=== PATIENT | female | born 1965 | race Caucasian/White ===

== ENCOUNTER 2021-11-17 08:48 | Day surgery (SDC) | payer MEDICARE, BC ==
[~2021-11-17] VITALS: Ht 154.9 cm; Wt 75.7 kg
[2021-11-17] MEDS ORDERED: AZULFIDINE500 M1 PO (09:26)
[2021-11-17] MEDS ORDERED: PROG100 PO (09:27)
[2021-11-17] MEDS ORDERED: LEFL20 PO (09:27)
[2021-11-17] MEDS ORDERED: Rituxan10 MG/ML IV (09:29)
[2021-11-17] MEDS ORDERED: OMEP20ER PO (09:59)
--- NOTE | 2021-11-17 10:59 | NUR ---
11/17/21 1059 Gina Bedolla 50C NACL FLUID DEFICIT FROM HYSTEROSCOPY. SURGEON AWARE.
== END 2021-11-17 11:38 | disposition home or self-care (01) ==
LOC: ORSCSDS 08:48
PROVIDERS: Obstetrics & Gynecology
PROC: 0UDB8ZX Extraction of Endometrium, Via Natural or Artificial Opening Endoscopic, Diagnostic (ICD-10-PCS; principal; 2021-11-17 10:00)
DX: N93.8 Other specified abnormal uterine and vaginal bleeding (principal); D25.9 Leiomyoma of uterus, unspecified; N84.0 Polyp of corpus uteri; E28.2 Polycystic ovarian syndrome; N88.2 Stricture and stenosis of cervix uteri; Z87.891 Personal history of nicotine dependence; K21.9 Gastro-esophageal reflux disease without esophagitis; F32.A Depression, unspecified; M06.9 Rheumatoid arthritis, unspecified; M35.00 Sjogren syndrome, unspecified; G62.9 Polyneuropathy, unspecified; Z79.899 Other long term (current) drug therapy
CPT/HCPCS: 88305; J0690; J1100; J1885; J2405; J2704; J3010

== ENCOUNTER 2022-03-23 06:22 | Day surgery (SDC) | payer MEDICARE, BC ==
[~2022-03-23] VITALS: Ht 154.9 cm; Wt 75.7 kg
[~2022-03-23 06:22] MED LIST: AZULFIDINE500 M1 PO; LEFL20 PO; OMEP20ER PO; PROG100 PO; Rituxan10 MG/ML IV
--- NOTE | 2022-03-23 07:36 | NUR ---
History, Chart, Medications and Allergies reviewed before start of procedure. Patient confirms NPO status and agrees with scheduled surgery. Pre-Op teaching done. Pt verbalizes understanding. PT BELONGINGS UNDERNEATH BED FOR SAFEKEEPING.
--- NOTE | 2022-03-23 08:42 | NUR ---
03/23/22 0842 Deedee Ayoub 14FR MCNALLY INSERTED AT 0830 BY [email or web address]
--- NOTE | 2022-03-23 13:04 | NUR ---
PATIENT ARRIVED FROM PACU TODAY AT 1230. POD 0 LAP HYSTERECTOMY PATIENT IS A&OX4. VS ARE WNL AND IS ON RA. PATIENT REPORTS 3/10 PAIN AT THIS TIME. SHE IS TOLERATING SMALL SIPS OF PO INTAKE. PATIENT HAS 4 ABD LAP SITES WITH DERMABOND THAT ARE C/D/I. BOWEL TONES ARE HYPOACTIVE. SHE HAS THE K-PAD ON HER ABD WHICH IS HELPING WITH THE "CRAMPING" FEELING SHE REPORTED. MCNALLY IS DRAINING PER GRAVITY WITH NO KINKS IN TUBING AND HAS YELLOW URINE OUTPUT. MOTHER IS AT BEDSIDE. CALL LIGHT WITHIN REACH.
[2022-03-23] MEDS ORDERED: IBUP400 PO (17:15)
[2022-03-23] MEDS ORDERED: ESTR2 PO (17:15)
[2022-03-23] MEDS ORDERED: SIME80CH PO (17:16)
[2022-03-23] MEDS ORDERED: Percocet 5-3251 EACH PO (17:16)
[2022-03-23] MEDS ORDERED: PROM25 PO (17:16)
--- NOTE | 2022-03-23 17:48 | NUR ---
DISCHARGE NOTE: PATIENT AND PATIENTS MOTHER WERE EDUCATED ON DISCHARGE INSTRUCTIONS. BOTH VERBALIZED UNDERSTANDING AND HAD NO FURTHER QUESTIONS. PAIN IS MANAGED WITH PO PAIN MEDICATIONS. DENIES HAVING NAUSEA OR VOMITING. HER ABD X4 LAP SITES WITH DERMABOND ARE C/D/I. SHE REPORTS A SCANT AMOUNT OF BLOOD ON HER TATIANA PAD. SHE IS INDEP. IN THE ROOM. SHE IS TOLERATING PO INTAKE AND IS VOIDING. PATIENT IS DRESSED AND HAS ITEMS IN THE ROOM GATHERED. SHE REFUSED TO BE WHEELCHAIRED OUT SO SHE IS WALKING WITH HER MOTHER OUT TO HER CAR TO DRIVE BACK TO [place]. HER PERSCRIPTION OF ESTRACE WAS FAXED TO HER PREFERRED PHARMACY WHICH IS [facility] IN [place]. PATIENT ALREADY HAD HER HARD PERSCRIPTIONS FILLED OUT PRIOR TO THE SURGERY TODAY.
== END 2022-03-23 17:52 | disposition home or self-care (01) ==
LOC: ORSCMMR 06:22 → ORD 07:30 → ORSCMMR 07:30 → SURS 12:09 → ORSCMMR 17:52
PROVIDERS: Obstetrics & Gynecology
PROC: 0UT74ZZ Resection of Bilateral Fallopian Tubes, Percutaneous Endoscopic Approach (ICD-10-PCS; principal; 2022-03-23 07:30)
PROC: 0UT24ZZ Resection of Bilateral Ovaries, Percutaneous Endoscopic Approach (ICD-10-PCS; principal; 2022-03-23 07:30)
PROC: 0UT94ZZ Resection of Uterus, Percutaneous Endoscopic Approach (ICD-10-PCS; principal; 2022-03-23 07:30)
DX: N92.0 Excessive and frequent menstruation with regular cycle (principal); D25.9 Leiomyoma of uterus, unspecified; N80.03 Adenomyosis of the uterus; N83.292 Other ovarian cyst, left side; N83.291 Other ovarian cyst, right side; K66.0 Peritoneal adhesions (postprocedural) (postinfection); Z87.891 Personal history of nicotine dependence; K21.9 Gastro-esophageal reflux disease without esophagitis; G62.9 Polyneuropathy, unspecified; M35.00 Sjogren syndrome, unspecified; F32.A Depression, unspecified; Z79.899 Other long term (current) drug therapy
CPT/HCPCS: 58571; S2900; 36415; 84702; 86850; 86900; 86901; 88305; 88307; A9270; J0690; J1100; J1885; J2270; J2405; J2704; J3010; J7120

== ENCOUNTER → 2022-08-09 | Outpatient (CLI) | payer MEDICARE, BC ==
[~2022-08-09] MED LIST changes: +ESTR2 PO; +IBUP400 PO; +PROM25 PO; +Percocet 5-3251 EACH PO; +SIME80CH PO
[2022-08-09 20:35] LABS: Campylobacter Sp Detected (NOT DETECT)
[2022-08-09 20:36] LABS: Adenovirus F 40/41 Not Detected (NOT DETECT); Astrovirus Not Detected (NOT DETECT); Cryptosporidium Not Detected (NOT DETECT); Cyclospora Cayetanensis Not Detected (NOT DETECT); E. Coli O157 Not Detected (NOT DETECT); Entamoeba Histolytica Not Detected (NOT DETECT); Enteroaggregative E. coli-EAEC Not Detected (NOT DETECT); Enteropathogenic E. coli-EPEC Not Detected (NOT DETECT); Enterotoxigenic E. coli-ETEC Not Detected (NOT DETECT); Giardia Lamblia Not Detected (NOT DETECT); Norovirus GI/GII Not Detected (NOT DETECT); Plesiomonas Shigelloides Not Detected (NOT DETECT); Rotavirus A Not Detected (NOT DETECT); Salmonella Sp Not Detected (NOT DETECT); Sapovirus Not Detected (NOT DETECT); Shiga Toxin-prod E. coli-STEC Not Detected (NOT DETECT); Shigella/Enteroin E. coli-EIEC Not Detected (NOT DETECT); Vibrio Cholerae Not Detected (NOT DETECT); Vibrio Sp Not Detected (NOT DETECT); Yersinia Enterocolitica Not Detected (NOT DETECT)
== END | disposition home or self-care (01) ==
LOC: LAB SHORT 07:15 → LAB 07:15 → LAB FUT 07-21 16:30
PROVIDERS: Internal Medicine
DX: K21.9 Gastro-esophageal reflux disease without esophagitis (principal); M06.9 Rheumatoid arthritis, unspecified; E78.5 Hyperlipidemia, unspecified; R19.7 Diarrhea, unspecified
CPT/HCPCS: 87338; 87507